=== PATIENT | male | born 1935 | race Caucasian/White ===

== ENCOUNTER 2021-01-28 08:18 | Inpatient (IN) | payer MEDICARE, OTHER ==
[2021-01-28] MEDS ORDERED: Acetaminophen 325 MG TAB PO PRN (09:10)
[2021-01-28] MEDS ORDERED: Cepastat Lozenges 1 LOZ PO PRN (09:10)
[2021-01-28] MEDS ORDERED: Benzonatate 100 MG CAP PO PRN (09:10)
[2021-01-28] MEDS ORDERED: Bisacodyl 10 MG SUPP PR PRN (09:10)
[2021-01-28] MEDS ORDERED: Senokot S 8.6-50 MG TAB PO PRN (09:10)
[2021-01-28] MEDS ORDERED: Calcium Carbonate 500 MG ChewTAB PO PRN (09:10)
[2021-01-28] MEDS ORDERED: hydrALAZINE 20 MG/ML VIAL SLOW IVP PRN (09:10)
[2021-01-28] MEDS ORDERED: Atropine Sulfate 1 mg/10 ml Syringe IVP PRN (09:10)
[2021-01-28 09:32] LABS: #Eosinphils 0.2 thou/uL (0.0-0.7); #Lymphocytes 3.6 thou/uL (1.20-3.40); #Monocytes 0.7 thou/uL (0.11-0.59); #Neutrophils 3.5 thou/uL (1.40-6.50); %Basophils 0.5 % (0.0-1.0); %Eosinophils 1.9 % (0.0-10.0); %Lymphocytes 44.8 % (21.0-51.0); %Neutrophils 43.7 % (42.0-75.0); Hemoglobin 14.5 g/dL (14.0-18.0); Mean Corpuscular HGB CONC 30.9 g/dL (32.0-36.0); Mean Corpuscular Hemoglobin 28.2 pg (27.0-31.0); Mean Corpuscular Volume 91.1 fL (78.0-98.0); Platelet Count 171 thou/uL (130-400); Red Blood Cell (RBC) Count 5.15 mill/uL (4.70-6.10); White Blood Cell (WBC) Count 7.9 thou/uL (4.8-10.8)
[2021-01-28] MEDS ORDERED: Furosemide 40 MG TAB ONE (09:34)
[2021-01-28] MEDS ORDERED: Furosemide 40 MG/4 ML VIAL ONE (09:34)
[2021-01-28] MEDS ORDERED: DOBUTamine 500 mg/250 ml 250 ML ONE (09:35)
[2021-01-28 09:37] LABS: PTT 27.6 sec (22.9-36.1)
[2021-01-28 09:38] LABS: INR-International Normal Ratio 1.1; Prothrombin Time 14.1 sec (12.0-14.7)
[2021-01-28 09:54] LABS: ALT (SGPT) 18 U/L (8-55); AST (SGOT) 24 U/L (5-34); Albumin 3.8 g/dL (3.4-4.8); Alkaline Phosphatase 75 U/L (40-110); Anion Gap 15 mmol/L (10-20); BUN (Urea Nitrogen) 21 mg/dL (8.4-25.7); Bilirubin, Total 1.2 mg/dL (0.2-1.2); Calc. Creatinine Clearance 0 mL/min (70-130); Calcium 9.8 mg/dL (7.8-10.44); Carbon Dioxide 23 mmol/L (23-31); Chloride 106 mmol/L (98-107); Globulin 3.9 g/dL (2.4-3.5); Glucose 96 mg/dL (83-110); Potassium 4.4 mmol/L (3.5-5.1); Protein, Total 7.7 g/dL (5.8-8.1); Sodium 140 mmol/L (136-145)
[2021-01-28] MEDS ORDERED: CEFAZOLIN 1 GM VIAL ONE (11:18)
[2021-01-28] MEDS ORDERED: Lidocaine 1% (PF) 30 ML VIAL ONE (11:18)
[2021-01-28] MEDS ORDERED: Gentamicin 80 MG/2 ML VIAL ONE (11:18)
[2021-01-28] MEDS ORDERED: Levofloxacin 500 mg/D5W 100 ml Premix Bag ONE (11:51)
[2021-01-28 14:02] VITALS: BMI 23.1
[2021-01-28] MEDS ORDERED: Acetaminophen/Codeine 30-300mg Tablet PO PRN ×2 (14:30)
[2021-01-28 16:27] LABS: Troponin I 0.102 ng/mL (< 0.028)
[2021-01-28] MEDS ORDERED: Metoprolol Tartrate 25 MG TAB PO SCH (21:00)
[2021-01-28] MEDS ORDERED: Atorvastatin Calcium 40 MG TAB PO SCH (21:00)
[2021-01-28] MEDS ORDERED: Tamsulosin HCl 0.4 MG CAP PO SCH (21:00)
[2021-01-29 04:32] LABS: #Eosinphils 0.1 thou/uL (0.0-0.7); #Lymphocytes 2.4 thou/uL (1.20-3.40); #Neutrophils 3.4 thou/uL (1.40-6.50); %Basophils 0.6 % (0.0-1.0); %Eosinophils 0.9 % (0.0-10.0); %Lymphocytes 34.4 % (21.0-51.0); %Monocytes 14.8 % (0.0-10.0); %Neutrophils 49.4 % (42.0-75.0); Hemoglobin 13.3 g/dL (14.0-18.0); Mean Corpuscular HGB CONC 31.8 g/dL (32.0-36.0); Mean Corpuscular Hemoglobin 28.6 pg (27.0-31.0); Mean Corpuscular Volume 89.8 fL (78.0-98.0); Mean Platelet Volume 7.5 fL (7.4-10.4); Platelet Count 156 thou/uL (130-400); RBC Distribution Width 11.7 % (11.5-14.5); Red Blood Cell (RBC) Count 4.65 mill/uL (4.70-6.10)
[2021-01-29 04:57] LABS: ALT (SGPT) 15 U/L (8-55); AST (SGOT) 22 U/L (5-34); Albumin 3.3 g/dL (3.4-4.8); Alkaline Phosphatase 60 U/L (40-110); Anion Gap 14 mmol/L (10-20); BUN (Urea Nitrogen) 17 mg/dL (8.4-25.7); Bilirubin, Total 1.6 mg/dL (0.2-1.2); Calc. Creatinine Clearance 75 mL/min (70-130); Calcium 9.3 mg/dL (7.8-10.44); Carbon Dioxide 25 mmol/L (23-31); Cardiac Risk 4.6 (Less than 4.5); Chloride 103 mmol/L (98-107); Cholesterol 133 mg/dl (< 200 Desired); Globulin 3.4 g/dL (2.4-3.5); Glucose 105 mg/dL (83-110); HDL Cholesterol 29 mg/dL (>60 Neg Risk); LDL Cholesterol, Calculated 88 mg/dL; Potassium 3.8 mmol/L (3.5-5.1); Protein, Total 6.7 g/dL (5.8-8.1); Sodium 138 mmol/L (136-145); Triglycerides 78 mg/dL (Less than 150)
[2021-01-29 05:09] LABS: Free T4 (Free Thyroxine) 0.91 ng/dL (0.70-1.48); Thyroid Stimulating Hormone 1.8788 uIU/mL (0.35-4.94)
[2021-01-29] MEDS ORDERED: Potassium Chloride 10 MEQ TAB PO SCH (08:00)
[2021-01-29] MEDS ORDERED: Carvedilol 6.25 MG TAB PO SCH (08:00)
[2021-01-29] MEDS ORDERED: Finasteride 5 MG TAB PO SCH ×2 (09:00)
[2021-01-29] MEDS ORDERED: Enoxaparin Sodium 40 MG/0.4 ML SYRINGE SC SCH (09:00)
[2021-01-29] MEDS ORDERED: Lisinopril 5 MG TAB PO SCH (09:00)
[2021-01-29] MEDS ORDERED: Furosemide 20 MG TAB PO SCH (09:00)
[2021-01-29] MEDS ORDERED: Aspirin Chewable 81 MG TAB PO SCH (09:00)
[2021-01-29] MEDS ORDERED: Atorvastatin Calcium 40 MG TAB PO SCH (09:00)
[2021-01-29] MEDS ORDERED: Tamsulosin HCl 0.4 MG CAP PO SCH (09:00)
[2021-01-29 11:15] VITALS: TEMP 97.7
[2021-01-29 14:55] VITALS: BP 94/55
== END 2021-01-29 14:13 | disposition home or self-care (01) | DRG 242 ==
LOC: ERS 08:18 → CCL 11:32 → 2NO 12:48
PROVIDERS: ADMIT Internal Medicine; ATTEND Internal Medicine
PROC: 0JH606Z Insertion of Pacemaker, Dual Chamber into Chest Subcutaneous Tissue and Fascia, Open Approach (ICD-10-PCS; principal; 2021-01-28)
PROC: 02HK3JZ Insertion of Pacemaker Lead into Right Ventricle, Percutaneous Approach (ICD-10-PCS; 2021-01-28)
PROC: 02H63JZ Insertion of Pacemaker Lead into Right Atrium, Percutaneous Approach (ICD-10-PCS; 2021-01-28)
DX: I44.2 Atrioventricular block, complete (principal); I50.31 Acute diastolic (congestive) heart failure; I42.9 Cardiomyopathy, unspecified; N40.0 Benign prostatic hyperplasia without lower urinary tract symptoms; E78.5 Hyperlipidemia, unspecified; F41.9 Anxiety disorder, unspecified; Z77.090 Contact with and (suspected) exposure to asbestos; F40.240 Claustrophobia; J92.0 Pleural plaque with presence of asbestos; F41.1 Generalized anxiety disorder; I44.7 Left bundle-branch block, unspecified; E78.00 Pure hypercholesterolemia, unspecified; Z90.49 Acquired absence of other specified parts of digestive tract; Z79.899 Other long term (current) drug therapy; Z87.891 Personal history of nicotine dependence; Z83.49 Family history of other endocrine, nutritional and metabolic diseases; Z83.6 Family history of other diseases of the respiratory system; Z81.2 Family history of tobacco abuse and dependence
CPT/HCPCS: 33208; 36415; 71045; 71250; 80053; 80061; 83880; 84439; 84443; 84481; 84484; 85025; 85610; 85730; 93005; 93010; 93306; 93798; 94640; 96365; 96366; 96375; C1785; C1898; J0690; J1250; J1580; J1940; J1956; J2001; J7620

== ENCOUNTER 2022-12-18 10:26 | Outpatient (CLI) | payer MEDICARE | END 2022-12-18 10:27 | disposition home or self-care (01) | LOC: BICMAMMO 10:26 | PROVIDERS: ATTEND Orthopaedic Surgery | DX: M54.50 Low back pain, unspecified (principal); M85.851 Other specified disorders of bone density and structure, right thigh; M85.852 Other specified disorders of bone density and structure, left thigh | CPT/HCPCS: 77080 ==

== ENCOUNTER 2022-12-18 13:05 | Outpatient (CLI) | payer MEDICARE | END 2022-12-18 13:06 | disposition home or self-care (01) | LOC: MRI 13:05 | PROVIDERS: ATTEND Orthopaedic Surgery | DX: M47.26 Other spondylosis with radiculopathy, lumbar region (principal); M48.061 Spinal stenosis, lumbar region without neurogenic claudication; M51.16 Intervertebral disc disorders with radiculopathy, lumbar region | CPT/HCPCS: 72100; 72148 ==